=== PATIENT | male | born 1975 | race Caucasian/White ===

== ENCOUNTER → 2017-11-23 | Outpatient (CLI) | payer BC ==
--- NOTE | 2017-11-23 17:43 | Diagnostic Imaging Report ---
Indication: Pain Technique: 3 views of the right shoulder Comparison: none Findings: Now acute fractures. No dislocations. The joint spaces are preserved. Impression: Negative
== END | disposition home or self-care (01) ==
LOC: RAD 11:41
DX: M25.511 Pain in right shoulder (principal)